=== PATIENT | female | born 1995 | race Caucasian/White ===

== ENCOUNTER 2019-04-19 21:55 | Emergency (ER) | payer SELFPAY ==
[2019-04-19] MEDS ORDERED: Bacitracin Oint 1 GM U/D Packet TOP ONE (22:42)
--- NOTE | 2019-04-19 22:44 | EDM.PDOC ---
ED HPI GENERAL MEDICAL PROBLEM - General Chief Complaint: Bite:Animal, Insect Stated Complaint: DOG BITE Time Seen by Provider: 04/19/19 22:37 Source of Information: Reports: Patient, Family, RN Notes Reviewed History Limitations: Reports: No Limitations - History of Present Illness INITIAL COMMENTS - FREE TEXT/NARRATIVE: 23-year-old female presents emergency department today following a dog bite, this is a friend's dog she was bitten the face unfortunately there is tissue missing, believed to be all the shots up-to-date on the dog for rabies - Related Data Allergies Allergy/AdvReac Type Severity Reaction Status Date / Time No Known Allergies Allergy Verified 04/19/19 22:25 Home Meds: Home Meds NK [No Known Home Meds] 04/19/19 [History] Past Medical History - Past Health History Medical/Surgical History: Denies Medical/Surgical History Social & Family History - Tobacco Use Smoking Status *Q: Never Smoker ED ROS GENERAL - Review of Systems Review Of Systems: See Below Skin: Reports: Wound ED EXAM, ANIMAL BITE - Physical Exam Exam: See Below Text/Narrative:: examination of the face there is approximately a 1.5 cm x 2 cm open wound, with avulsion of the skin Course - Vital Signs Last Recorded V/S: Last Vital Signs Temp 97.7 F 04/19/19 22:30 Pulse 102 H 04/19/19 22:30 Resp 16 04/19/19 22:30 BP 126/84 04/19/19 22:30 Pulse Ox 98 04/19/19 22:30 - Orders/Labs/Meds Orders: Active Orders 24 hr Category Date Time Status Vaccines to be Administered [RC] PER UNIT ROUTINE Care 04/19/19 22:47 Ordered Meds: Medications Discontinued Medications Generic Name Dose Route Start Last Admin Trade Name Freq PRN Reason Stop Dose Admin Bacitracin 1 dose 04/19/19 22:42 04/19/19 22:52 Bacitracin Oint 1 Gm TOP 04/19/19 22:43 1 dose ONETIME ONE Administration Diphtheria/Tetanus/Acell Pertussis 0.5 ml 04/19/19 22:47 04/19/19 22:53 Adacel IM 04/19/19 22:48 0.5 ml .ONCE ONE Administration Lidocaine HCl 5 ml 04/19/19 22:42 04/19/19 22:52 Xylocaine-Mpf 1% INJECT 04/19/19 22:43 5 ml ONETIME ONE Administration Departure - Departure Time of Disposition: 23:20 Disposition: DC/Tfer to Acute Hospital 02 Condition: Fair Clinical Impression: Dog bite of face Qualifiers: Encounter type: initial encounter Qualified Code(s): S01.85XA - Open bite of other part of head, initial encounter; W54.0XXA - Bitten by dog, initial encounter - Discharge Information Referrals: PCP,None [Primary Care Provider] - Forms: ED Department Discharge Additional Instructions: Please report the [facility] emergency department for further evaluation your to see Dr. Ramos from plastic surgery - My Orders Last 24 Hours: My Active Orders 04/19/19 22:47 Vaccines to be Administered [RC] PER UNIT ROUTINE - Assessment/Plan Last 24 Hours: My Active Orders 04/19/19 22:47 Vaccines to be Administered [RC] PER UNIT ROUTINE Plan: Assessment Acuity = acute Site and laterality = dog bite to face with avulsion of skin Etiology = trauma Manifestations = none Location of injury = Home Lab values = none Plan Called discussed case with Dr. Ramos at 23:[address] [facility] kindly accepted the patient in transport also discussed case Dr. Enriquez emergency room physician patient will be transported via private vehicle she did receive an updated tetanus today for further evaluation and treatment This note was dictated using [employer] voice recognition software please call with any questions on syntax or grammar.
[2019-04-19] MEDS ORDERED: Diphtheria,Pertussis(Acell),Tetanus Vaccine 0.5 ML SDV IM ONE (22:47)
== END 2019-04-19 23:40 ==
LOC: JP.ED 21:55
DX: S01.85XA Open bite of other part of head, initial encounter (principal); Z23 Encounter for immunization; W54.0XXA Bitten by dog, initial encounter
CPT/HCPCS: 90471; 90715; 99283; J2001